=== PATIENT | male | born 1985 | race Two or more races ===

== ENCOUNTER 2023-11-09 15:06 | Emergency (ER) | payer BC ==
[~2023-11-09] VITALS: Ht 180.3 cm; Wt 90.7 kg
[2023-11-09] MEDS ORDERED: KETOROLAC TROMETHAMINE 60 MG VIAL IM ONE (18:15)
== END 2023-11-09 18:55 | disposition home or self-care (01) ==
LOC: ER 15:06
DX: M25.561 Pain in right knee (principal)